=== PATIENT | female | born 1960 | race Caucasian/White ===

== ENCOUNTER 2018-06-13 10:12 | Emergency (ER) | payer OTHER ==
--- OUTSIDE RECORDS SUMMARY | 2018-06-13 10:15 | XMS REPORT ---
:1960 Author Organization eClinicalWorks Care Team Providers Name Role Phone Anamaria Parrish Provider Role Unavailable Allergies, Adverse Reactions, Alerts Substance Reaction Event Type penicillin Info Not Available Drug Allergy Problems Problem Type Condition Code Onset Dates Condition Status Assessment Blistering rash R21 Active Problem Hyperlipidemia, unspecified E78.5 Active hyperlipidemia type Problem Elevated blood pressure reading R03.0 Active without diagnosis of hypertension Problem Blistering rash R21 Active Problem Abnormal LFTs (liver function tests) R94.5 Active Problem Calculus of kidney and ureter N20.2 Active Problem Uncontrolled type 2 diabetes E11.65 Active mellitus without complication, without long-term current use of insulin Medications Medication Code Code Instructions Start End Status Dosage System Date Date Zetia [facility] 81259902060 10 Orally Once Active 1 tablet a day Medrol [facility] 11565153182 4 MG Orally as Mar 26, Active as directed directed 2017 Crestor [facility] 26455524881 40 MG Orally Active 1 tablet in Once a day evening Januvia [facility] 38838333191 50 MG Orally November 29, Active 1 tablet Once a day 2017 Tamiflu [facility] 50975087501 75 MG Orally Active 1 capsule Twice a day Levofloxacin [facility] 04369959925 500 MG Orally Active 1 tablet Once a day Acyclovir [facility] 95935677430 200 MG Orally Mar 26, Active 1 capsule Every 4 hours 2018 up to 5 times daily MetFORMIN HCl ER [facility] 69543049791 500 Orally Once Active 2 tablets a day Results No Known Results Summary Purpose eClinicalWorks Submission
--- OUTSIDE RECORDS SUMMARY | 2018-06-13 10:15 | XMS REPORT ---
:1960 Author Organization eClinicalWorks Care Team Providers Name Role Phone Anamaria Parrish Provider Role Unavailable Allergies, Adverse Reactions, Alerts Substance Reaction Event Type penicillin Info Not Available Drug Allergy Problems Problem Type Condition Code Onset Dates Condition Status Assessment Abnormal LFTs (liver function tests) R94.5 Active Problem Elevated blood pressure reading R03.0 Active without diagnosis of hypertension Problem Calculus of kidney and ureter N20.2 Active Problem Hyperlipidemia, unspecified E78.5 Active hyperlipidemia type Assessment Uncontrolled type 2 diabetes E11.65 Active mellitus without complication, without long-term current use of insulin Assessment Hyperlipidemia, unspecified E78.5 Active hyperlipidemia type Problem Uncontrolled type 2 diabetes E11.65 Active mellitus without complication, without long-term current use of insulin Problem Abnormal LFTs (liver function tests) R94.5 Active Medications Medication Code Code Instructions Start End Status Dosage System Date Date MetFORMIN HCl ER [facility] 11567378444 500 Orally Once Active 2 tablets a day Zetia [facility] 41832098121 10 Orally Once Active 1 tablet a day Tamiflu [facility] 71129719056 75 MG Orally Active 1 capsule Twice a day Levofloxacin [facility] 86363120781 500 MG Orally Active 1 tablet Once a day Crestor [facility] 26441352936 40 MG Orally Active 1 tablet Once a day in evening Januvia [facility] 58619035662 50 MG Orally November 29, Active 1 tablet Once a day 2017 Results No Known Results Summary Purpose eClinicalWorks Submission
--- NOTE | 2018-06-13 11:15 | RAD REPORT ---
EXAM DESCRIPTION: CT - Stone Protocol - 06/13/2018 11:04 am CLINICAL HISTORY: Flank pain. Flank pain;Hematuria COMPARISON: CTSTONE PROTOCOL dated 04/06/2015 TECHNIQUE: Axial images were obtained without oral or IV contrast. Lack of contrast limits solid org an and vascular assessment. The [id number] spans the entirety of the system partially obscuring uppermost abdomen and lung bases. Coronal reformatted images were obtained and reviewed. All CT scans are performed using dose optimization technique as appropriate and may include automated exposure control or mA/KV adjustment according to patient size. FINDINGS: The lower lung johnson are clear. Imaged portions of the liver and spleen show no suspicious findings on non-contrast imaging. The panc reas and adrenal glands are normal. No pathologic lymphadenopathy in the abdomen or pelvis. 6 mm stone (890 HU) is present proximal ureter resulting in mild to moderate left hydronephrosis. No bowel obstruction, free air, free fluid or abscess. Normal appendix noted. No significant bony abnormality. IMPRESSION: 6 mm stone proximal left ureter resulting in mild to moderate hydronephrosis.
[2018-06-13 12:15] LABS: Absolute Lymphocytes (CBC) 1.4 K/uL (0.7-4.9); Absolute Monocytes 0.3 K/uL (0.1-1.3); Basophils % 0.5 % (0-1.3); Eosinophils % 0.2 % (0-4.4); Hematocrit 42.8 % (36.0-45.0); Lymphocytes % 14.1 % (15.3-44.8); MPV 8.8 fL (7.6-11.3); Monocytes % 2.9 % (3.3-12.3); RBC Red Blood Cell Count 4.94 M/uL (3.86-4.86)
[2018-06-13 12:16] LABS: Urine Amorphous Sediment 1+ /HPF (NONE SEEN); Urine Bacteria <20 /HPF (<20); Urine Culture Reflex Order REFLEXED; Urine Mucus 1+ /HPF (NONE SEEN); Urine RBC >50 /HPF (NONE SEEN)
[2018-06-13 12:17] LABS: Urine Blood 3+ (NEG); Urine Glucose NEGATIVE (NEG); Urine Protein 2+ (NEG); Urine Specific Gravity >1.030 (1.005-1.030); Urine pH 5.5 (5.0-7.0)
[2018-06-13] MEDS ORDERED: Magnesium Sulfate 2gm IVPB 2 G/50 ML BAG IV ONE (12:18)
[2018-06-13] MEDS ORDERED: ONDANSETRON 4 MG/2 ML VIAL ONE (12:18)
[2018-06-13] MEDS ORDERED: TAMSULOSIN 0.4 MG SR CAP ONE (12:18)
[2018-06-13] MEDS ORDERED: MORPHINE 4 MG/ML SYR ONE (12:18)
[2018-06-13] MEDS ORDERED: NA CHLORIDE 0.9% 1,000 ML ONE (12:18)
[2018-06-13 12:24] LABS: Potassium 3.9 mmol/L (3.5-5.1)
--- NOTE | 2018-06-13 13:53 | ER ---
Nurse's Notes [facility] Name: Timmy Dias Age: 58 yrs Sex: Female : 1960 Arrival Date: 06/13/2018 Time: 10:14 Bed 7 Private MD: Anamaria Parrish Diagnosis: Calculus of kidney and ureter Presentation: 06/13 10:48 Presenting complaint: Patient states: L sided flank pain x approx 2 weeks, worse today, ph also reports N/V and blood in urine, denies fever, hx of kidney stones. Transition of care: patient was not received from another setting of care. Onset of symptoms was June 13, 2018. Risk Assessment: Do you want to hurt yourself or someone else? Patient reports no desire to harm self or others. Initial Sepsis Screen: Does the patient meet any 2 criteria? No. Patient's initial sepsis screen is negative. Care prior to arrival: None. 10:48 Method Of Arrival: Ambulatory ph 10:48 Acuity: VARUN 3 ph 14:19 Initial Sepsis Screen: Does the patient have a suspected source of infection? No. jl7 Patient's initial sepsis screen is negative. Historical: - Allergies: 10:49 PENICILLINS; ph - PMHx: 10:49 Diabetes - NIDDM; High Cholesterol; ph - PSHx: 10:49 Hysterectomy; Tonsillectomy; bunion surgery; ph - Immunization history:: Adult Immunizations unknown. - Social history:: Smoking status: unknown. - Ebola Screening: : No symptoms or risks identified at this time. Screenin:51 Abuse screen: Denies threats or abuse. Denies injuries from another. Nutritional jl7 screening: No deficits noted. Tuberculosis screening: No symptoms or risk factors identified. Fall Risk IV access (20 points). Total Tan Fall Scale indicates No Risk (0-24 pts). Assessment: 11:51 General: Appears in no apparent distress. uncomfortable, Behavior is calm, cooperative, jl7 appropriate for age. Pain: Complains of pain in left flank Pain radiates to left lower quadrant Pain currently is 5 out of 10 on a pain scale. at worst was 8 out of 10 on a pain scale. Pain began 1 day ago. Is continuous. Neuro: Level of Consciousness is awake, alert, obeys commands, Oriented to person, place, time, situation. Cardiovascular: Patient's skin is warm and dry. Respiratory: Airway is patent Respiratory effort is even, unlabored, Respiratory pattern is regular, symmetrical. GI: Reports nausea, vomiting, Patient currently denies diarrhea. : Urine is blood tinged, Reports pain. Derm: Skin is pink, warm \T\ dry. 12:45 Reassessment: Patient appears in no apparent distress at this time. Patient and/or jl7 family updated on plan of care and expected duration. Pain level reassessed. Patient is alert, oriented x 3, equal unlabored respirations, skin warm/dry/pink. Patient states feeling better. Patient states symptoms have improved. 13:56 Reassessment: No changes from previously documented assessment. Patient and/or family jl7 updated on plan of care and expected duration. Pain level reassessed. Patient is alert, oriented x 3, equal unlabored respirations, skin warm/dry/pink. Vital Signs: 10:49 BP 143 / 104; Pulse 71; Resp 18; Temp 98.3; Pulse Ox 97% on R/A; Weight 88 kg; Height 5 ph ft. 9 in. (175.26 cm); 11:51 BP 133 / 85; Pulse 70; Resp 16 S; Pulse Ox 95% on R/A; jl7 12:00 BP 136 / 77; Pulse 71; Resp 16 S; Pulse Ox 95% on R/A; Pain 5/10; jl7 12:45 BP 137 / 77; Pulse 86; Resp 15 S; Pulse Ox 95% on R/A; Pain 2/10; jl7 13:54 BP 127 / 68; Pulse 82; Resp 16 S; Pulse Ox 95% on R/A; Pain 2/10; jl7 10:49 Body Mass Index 28.65 (88.00 kg, 175.26 cm) ph ED Course: 10:14 Patient arrived in ED. rg4 10:15 Anamaria Parrish MD is Private Physician. rg4 10:49 Triage completed. ph 10:50 Arm band placed on Patient placed in waiting room, Patient notified of wait time. ph 10:52 Chen [facility]erna [facility]-C [facility]. kb 10:52 Patrick Collins MD is Attending Physician. kb 11:05 CT Stone Protocol In Process Unspecified. EDMS 11:05 CT completed. Patient tolerated procedure well. Patient moved to CT via wheelchair. jg6 Patient moved back from [place]. 11:39 Cirilo Butt, RN is Primary Nurse. jl7 11:51 Patient has correct armband on for positive identification. Bed in low position. Call jl7 light in reach. Side rails up X 1. Pulse ox on. NIBP on. 11:51 Urine collected:. Inserted saline lock: 20 gauge in right antecubital area, using jl7 aseptic technique. Blood collected. 13:53 Ilan Ashby MD is Referral Physician. kb 14:19 No provider procedures requiring assistance completed. IV discontinued, intact, jl7 bleeding controlled, No redness/swelling at site. Pressure dressing applied. Administered Medications: 12:19 Drug: Flomax 0.4 mg Route: PO; jl7 13:00 Follow up: Response: No adverse reaction jl7 12:20 Drug: NS 0.9% 1000 ml Route: IV; Rate: 1000 ml; Site: right antecubital; jl7 13:20 Follow up: IV Status: Completed infusion jl7 12:21 Drug: Zofran 4 mg Route: IVP; Site: right antecubital; jl7 12:30 Follow up: Response: No adverse reaction; Nausea is decreased jl7 12:23 Drug: morphine 4 mg Route: IVP; Site: right antecubital; jl7 12:45 Follow up: Response: No adverse reaction; Pain is decreased jl7 12:25 Drug: Magnesium Sulfate 2 grams Route: IVPB; Infused Over: 2 hrs; Site: right jl7 antecubital; 14:20 Follow up: IV Status: Completed infusion jl7 Outcome: 13:51 Discharge ordered by . kb 14:19 Discharged to home ambulatory. jl7 14:19 Condition: stable 14:19 Discharge instructions given to patient, Instructed on discharge instructions, follow up and referral plans. medication usage, Demonstrated understanding of instructions, follow-up care, medications, Prescriptions given X x5 14:21 Patient left the ED. jl7 Signatures: Dispatcher [employer] EDMS Chen Serna, LACQUER SPRAY BOOTH OPERATOR-C LACQUER SPRAY BOOTH OPERATOR-Winifred Bertrand, RN RN josselin Velazquez, Norah rg4 Cirilo Butt, VALENTINA RN jl7 Jane Velazquez jg6
--- NOTE | 2018-06-13 13:53 | EDPHYS ---
Physician Documentation [facility] Name: Timmy Dias Age: 58 yrs Sex: Female : 1960 Arrival Date: 06/13/2018 Time: 10:14 Bed 7 Private MD: Anamaria Parrish ED Physician Patrick Collins HPI: 06/13 13:44 This 58 yrs old Female presents to ER via Ambulatory with complaints of Low kb Back Pain, Blood In Urine. 13:47 The patient complains of pain in the left flank. The pain radiates to the left lower kb quadrant. Onset: The symptoms/episode began/occurred 2 week(s) ago, and became worse. Modifying factors: The symptoms are alleviated by nothing. the symptoms are aggravated by palpation/percussion. Associated signs and symptoms: Pertinent positives: hematuria, Pertinent negatives: diarrhea, dizziness, dysuria, fever, urinary frequency, headache, nausea, pain radiating to the lower extremities, vomiting. Severity of pain: At its worst the pain was moderate in the emergency department the pain is unchanged. The patient has experienced similar episodes in the past, several times. The patient has not recently seen a physician. Historical: - Allergies: 10:49 PENICILLINS; ph - PMHx: 10:49 Diabetes - NIDDM; High Cholesterol; ph - PSHx: 10:49 Hysterectomy; Tonsillectomy; bunion surgery; ph - Immunization history:: Adult Immunizations unknown. - Social history:: Smoking status: unknown. - Ebola Screening: : No symptoms or risks identified at this time. ROS: 13:43 Constitutional: Negative for fever, chills, and weight loss, Cardiovascular: Negative kb for chest pain, palpitations, and edema, Respiratory: Negative for shortness of breath, cough, wheezing, and pleuritic chest pain, Abdomen/GI: Negative for abdominal pain, nausea, vomiting, diarrhea, and constipation, MS/Extremity: Negative for injury and deformity, Skin: Negative for injury, rash, and discoloration, Neuro: Negative for headache, weakness, numbness, tingling, and seizure. 13:43 : Positive for urinary symptoms, flank pain, hematuria. Exam: 13:44 Constitutional: This is a well developed, well nourished patient who is awake, alert, kb and in no acute distress. Head/Face: Normocephalic, atraumatic. ENT: Nares patent. No nasal discharge, no septal abnormalities noted. Tympanic membranes are normal and external auditory canals are clear. Oropharynx with no redness, swelling, or masses, exudates, or evidence of obstruction, uvula midline. Mucous membranes moist. Neck: Trachea midline, no thyromegaly or masses palpated, and no cervical lymphadenopathy. Supple, full range of motion without nuchal rigidity, or vertebral point tenderness. No Meningismus. Chest/axilla: Normal chest wall appearance and motion. Nontender with no deformity. No lesions are appreciated. Cardiovascular: Regular rate and rhythm with a normal S1 and S2. No gallops, murmurs, or rubs. Normal PMI, no JVD. No pulse deficits. Respiratory: Lungs have equal breath sounds bilaterally, clear to auscultation and percussion. No rales, rhonchi or wheezes noted. No increased work of breathing, no retractions or nasal flaring. Abdomen/GI: Soft, non-tender, with normal bowel sounds. No distension or tympany. No guarding or rebound. No evidence of tenderness throughout. Skin: Warm, dry with normal turgor. Normal color with no rashes, no lesions, and no evidence of cellulitis. MS/ Extremity: Pulses equal, no cyanosis. Neurovascular intact. Full, normal range of motion. Neuro: Awake and alert, GCS 15, oriented to person, place, time, and situation. Cranial nerves II-XII grossly intact. Motor strength 5/5 in all extremities. Sensory grossly intact. Cerebellar exam normal. Normal gait. 13:44 Back: CVA tenderness, that is moderate, is noted on the left. Vital Signs: 10:49 BP 143 / 104; Pulse 71; Resp 18; Temp 98.3; Pulse Ox 97% on R/A; Weight 88 kg; Height 5 ph ft. 9 in. (175.26 cm); 11:51 BP 133 / 85; Pulse 70; Resp 16 S; Pulse Ox 95% on R/A; jl7 12:00 BP 136 / 77; Pulse 71; Resp 16 S; Pulse Ox 95% on R/A; Pain 5/10; jl7 12:45 BP 137 / 77; Pulse 86; Resp 15 S; Pulse Ox 95% on R/A; Pain 2/10; jl7 13:54 BP 127 / 68; Pulse 82; Resp 16 S; Pulse Ox 95% on R/A; Pain 2/10; jl7 10:49 Body Mass Index 28.65 (88.00 kg, 175.26 cm) ph MDM: 11:37 Patient medically screened. kb 13:44 Data reviewed: vital signs, nurses notes. Data interpreted: Pulse oximetry: on room air kb is 95 %. Interpretation: normal. Counseling: I had a detailed discussion with the patient and/or guardian regarding: the historical points, exam findings, and any diagnostic results supporting the discharge/admit diagnosis, lab results, radiology results, the need for outpatient follow up, a urologist, to return to the emergency department if symptoms worsen or persist or if there are any questions or concerns that arise at home. 06/13 10:53 Order name: Urine Microscopic Only; Complete Time: 12:24 kb 06/13 12:00 Order name: CBC with Diff; Complete Time: 12:24 kb 06/13 10:53 Order name: CT Stone Protocol; Complete Time: 11:24 kb 06/13 12:00 Order name: Basic Metabolic Panel; Complete Time: 12:25 kb 06/13 12:09 Order name: Urine Dipstick--Ancillary (enter results); Complete Time: 12:24 ag 06/13 12:18 Order name: Urine Culture EDNV 06/13 10:53 Order name: Urine Dipstick-Ancillary (obtain specimen); Complete Time: 11:50 kb Administered Medications: 12:19 Drug: Flomax 0.4 mg Route: PO; jl7 13:00 Follow up: Response: No adverse reaction jl7 12:20 Drug: NS 0.9% 1000 ml Route: IV; Rate: 1000 ml; Site: right antecubital; jl7 13:20 Follow up: IV Status: Completed infusion jl7 12:21 Drug: Zofran 4 mg Route: IVP; Site: right antecubital; jl7 12:30 Follow up: Response: No adverse reaction; Nausea is decreased jl7 12:23 Drug: morphine 4 mg Route: IVP; Site: right antecubital; jl7 12:45 Follow up: Response: No adverse reaction; Pain is decreased jl7 12:25 Drug: Magnesium Sulfate 2 grams Route: IVPB; Infused Over: 2 hrs; Site: right jl7 antecubital; 14:20 Follow up: IV Status: Completed infusion jl7 Disposition: 06/13/18 13:51 Discharged to Home. Impression: Calculus of kidney and ureter. - Condition is Stable. - Discharge Instructions: Kidney Stones, [id number], Dietary Guidelines to Help Prevent Kidney Stones. - Prescriptions for Tylenol- Codeine #3 300-30 mg Oral Tablet - take 1 tablet by ORAL route every 6 hours As needed; 15 tablet. Zofran 4 mg Oral Tablet - take 1 tablet by ORAL route every 6 hours As needed; 20 tablet. Flomax 0.4 mg Oral Capsule, Sust. Release 24 hr - take 1 capsule by ORAL route once daily for 10 days 1/2 hour following the same meal each day; 10 capsule. Diclofenac Sodium 75 mg Oral Tablet, Delayed Release (E.C.) - take 1 tablet by ORAL route 2 times per day As needed; 30 tablet. Macrobid 100 mg Oral Capsule - take 1 capsule by ORAL route every 12 hours for 7 days; 14 capsule. - Medication Reconciliation Form, Thank You Letter, Antibiotic Education, Prescription Opioid Use form. - Follow up: Emergency Department; When: As needed; Reason: Worsening of condition. Follow up: Private Physician; When: 2 - 3 days; Reason: Recheck today's complaints, Continuance of care, Re-evaluation by your physician. Follow up: Ilan Ashby MD; When: 2 - 3 days; Reason: Recheck today's complaints. Addendum: 06/15/2018 15:28 Co-signature as Attending Physician, Patrick Collins MD. m a2 Signatures: Dispatcher [employer] [facility] Chen Serna FNP-C FNP-Winifred Bertrand RN RN Cirilo Willis RN RN jl7 Patrick Collins MD MD ma2 Corrections: (The following items were deleted from the chart) 06/13 13:53 13:51 06/13/2018 13:51 Discharged to Home. Impression: Calculus of kidney and ureter. kb Condition is Stable. Forms are Medication Reconciliation Form, Thank You Letter, Antibiotic Education, Prescription Opioid Use. Follow up: Emergency Department; When: As needed; Reason: Worsening of condition. Follow up: Private Physician; When: 2 - 3 days; Reason: Recheck today's complaints, Continuance of care, Re-evaluation by your physician. kb 14:21 13:53 06/13/2018 13:51 Discharged to Home. Impression: Calculus of kidney and ureter. jl7 Condition is Stable. Discharge Instructions: Kidney Stones, [id number], Dietary Guidelines to Help Prevent Kidney Stones. Prescriptions for Tylenol-Codeine #3 300-30 mg Oral Tablet - take 1 tablet by ORAL route every 6 hours As needed; 15 tablet, Zofran 4 mg Oral Tablet - take 1 tablet by ORAL route every 6 hours As needed; 20 tablet, Flomax 0.4 mg Oral Capsule, Sust. Release 24 hr - take 1 capsule by ORAL route once daily for 10 days 1/2 hour following the same meal each day; 10 capsule, Diclofenac Sodium 75 mg Oral Tablet, Delayed Release (E.C.) - take 1 tablet by ORAL route 2 times per day As needed; 30 tablet, Macrobid 100 mg Oral Capsule - take 1 capsule by ORAL route every 12 hours for 7 days; 14 capsule. and Forms are Medication Reconciliation Form, Thank You Letter, Antibiotic Education, Prescription Opioid Use. Follow up: Emergency Department; When: As needed; Reason: Worsening of condition. Follow up: Private Physician; When: 2 - 3 days; Reason: Recheck today's complaints, Continuance of care, Re-evaluation by your physician. Follow up: Ilan Ashby; When: 2 - 3 days; Reason: Recheck today's complaints. kb
== END 2018-06-13 14:21 | disposition home or self-care (01) ==
LOC: ER 10:12
DX: N20.2 Calculus of kidney with calculus of ureter (principal); Z88.0 Allergy status to penicillin
CPT/HCPCS: 36415; 74176; 76377; 80048; 81003; 81015; 85025; 87086; 87088; 96365; 96366; 96375; 99284; J2405; J3475; J7030